=== PATIENT | female | born 1940 | race Caucasian/White ===

== ENCOUNTER → 2018-10-10 | Outpatient (CLI) | payer OTHER, MEDICARE | LOC: FIMAGING 12:11 | PROVIDERS: ATTEND Internal Medicine | DX: J40 Bronchitis, not specified as acute or chronic (principal) ==

== ENCOUNTER → 2019-01-08 | Outpatient (CLI) | payer OTHER, MEDICARE | LOC: FIMAGING 12:40 | PROVIDERS: ATTEND Internal Medicine | DX: R05 Cough (principal) ==